=== PATIENT | female | born 1945 | race Caucasian/White ===

== ENCOUNTER → 2024-12-27 07:49 | Outpatient (REF) | payer MEDICARE, SELFPAY ==
[2024-12-27 15:05] LABS: Blood Urea Nitrogen 22 mg/dl (7-17); Calcium 10.8 mg/dl (8.4-10.2); Carbon Dioxide 22 mmol/L (22-30); Chloride 106 mmol/L (98-107); Glucose 116 mg/dl (70-99); Potassium 4.6 mmol/L (3.5-5.1); Sodium 139 mmol/L (135-145); eGFR 51.75
== END ==
LOC: RAD 07:49
PROVIDERS: ATTENDING PHYSICIAN Nurse Practitioner Family
DX: R10.9 Unspecified abdominal pain (principal); R19.00 Intra-abdominal and pelvic swelling, mass and lump, unspecified site
CPT/HCPCS: 36415; 74177; 76700; 80048; Q9967

== ENCOUNTER → 2025-01-30 10:03 | Outpatient (REF) | payer MEDICARE, SELFPAY | LOC: RAD 10:03 | PROVIDERS: ATTENDING PHYSICIAN Obstetrics & Gynecology | DX: R14.0 Abdominal distension (gaseous) (principal); N83.291 Other ovarian cyst, right side | CPT/HCPCS: 71046 ==

== ENCOUNTER → 2025-02-13 14:51 | Outpatient (REF) | payer MEDICARE, SELFPAY | LOC: RCS 14:51 | PROVIDERS: ATTENDING PHYSICIAN Internal Medicine Cardiovascular Disease; FAMILY PHYSICIAN Physician Assistant | DX: I25.118 Atherosclerotic heart disease of native coronary artery with other forms of angina pectoris (principal) | CPT/HCPCS: 93306 ==